=== PATIENT | female | born 1985 | race Caucasian/White ===

== ENCOUNTER 2016-06-30 14:02 | Emergency (ER) | payer OTHER | END 2016-06-30 15:47 | disposition home or self-care (01) | LOC: ER 14:02 | DX: H92.02 Otalgia, left ear (principal); F17.210 Nicotine dependence, cigarettes, uncomplicated ==

== ENCOUNTER 2016-07-10 18:21 | Emergency (ER) | payer OTHER | END 2016-07-10 18:46 | disposition home or self-care (01) | LOC: ER 18:21 | DX: S01.81XA Laceration without foreign body of other part of head, initial encounter (principal); H11.32 Conjunctival hemorrhage, left eye; F17.210 Nicotine dependence, cigarettes, uncomplicated; Y04.0XXA Assault by unarmed brawl or fight, initial encounter ==